=== PATIENT | female | born 1990 | race American Indian/Alaskan Native ===

== ENCOUNTER 2021-06-18 17:41 | Emergency (ER) | payer SELFPAY ==
[2021-06-18 17:56] VITALS: BP 136/77
[2021-06-18] MEDS ORDERED: IBUPROFEN 600 MG TAB PO ONE (20:50)
--- NOTE | 2021-06-18 21:21 | Emergency Department Report ---
ED ENT HPI - General Chief complaint: Earache Stated complaint: EAR NOISE AND THROAT PROBLEM Time Seen by Provider: 06/18/21 20:29 Source: patient Mode of arrival: Ambulatory Limitations: No Limitations - History of Present Illness Initial comments: The patient was evaluated in the emergency department for symptoms described in the history of present illness. He/she was evaluated in the context of the global COVID-19 pandemic, which necessitated consideration that the patient might be at risk for infection with the virus that causes COVID-19. Insti tutional protocols and algorithms that pertain to the evaluation of patients at risk for COVID-19 are in a state of rapid change based on information released by regulatory bodies including the CDC and federal and state organizations. These policies and algorithms were followed during the patient's care in the emergency department. Please note that these policies, procedures and recommendations changed on a rapid basis. 30-year-old 1 day history of right ear pain that feels like is draining inside and right side neck pain with swollen glands. She denies any fever chills no nausea no vomiting. She states she is Covid vaccinated but is not fully vaccinated. She reports seasonal allergies. Currently takes no meds on a daily basis and is allergic to penicillin and sulfa. MD complaint: sore throat (Right ear right side), ear pain Onset/Timin -: days(s) Location: R ear Severity scale (0 -10): 6 Quality: aching Consistency: intermittent Worsens with: swallowing Associated Symptoms: pain with swallowing, sore throat. denies: tinnitus, discharge from ear - Related Data Allergies Allergy/AdvReac Type Severity Reaction Status Date / Time Penicillins Allergy Hives Verified 06/18/21 20:49 Sulfa (Sulfonamide Allergy Hives Verified 06/18/21 20:49 Antibiotics) ED Dental HPI - General Chief complaint: Earache Stated complaint: EAR NOISE AND THROAT PROBLEM Time Seen by Provider: 06/18/21 20:29 Source: patient Mode of arrival: Ambulatory Limitations: No Limitations - Related Data Allergies Allergy/AdvReac Type Severity Reaction Status Date / Time Penicillins Allergy Hives Verified 06/18/21 20:49 Sulfa (Sulfonamide Allergy Hives Verified 06/18/21 20:49 Antibiotics) ED Review of Systems ROS: Stated complaint: EAR NOISE AND THROAT PROBLEM Other details as noted in HPI Comment: All other systems reviewed and negative ED Physical Exam - General Limitations: No Limitations General appearance: alert - Head Head exam: Present: atraumatic, normocephalic - Eye Eye exam: Present: normal appearance - ENT ENT exam: Present: mucous membranes moist, TM's normal bilaterally - Expanded ENT Exam Expanded TM/Canal exam: Mastoid Tenderness: Right TM, Left TM Throat exam: Positive: tonsillar erythema - Neck Neck exam: Present: tenderness, lymphadenopathy - Respiratory Respiratory exam: Present: normal lung sounds bilaterally. Absent: respiratory distress, accessory muscle use - Cardiovascular Cardiovascular Exam: Present: regular rate - Extremities Exam Extremities exam: Present: normal inspection, full ROM - Back Exam Back exam: Present: normal inspection, full ROM - Neurological Exam Neurological exam: Present: alert, oriented X3, normal gait - Psychiatric Psychiatric exam: Present: normal affect, normal mood - Skin Skin exam: Present: warm, dry, intact, normal color. Absent: rash ED Course Vital Signs 06/18/21 06/18/21 17:55 21:05 Temperature 98.5 F Pulse Rate 90 Respiratory 18 16 Rate Blood Pressure 136/77 [Right] O2 Sat by Pulse 100 Oximetry ED Medical Decision Making - Lab Data Lab Results 06/18/21 Range/Units Unknown Group A Strep Rapid Negative (Negative) - Medical Decision Making 30-year-old 1 day history of right ear pain that feels like is draining inside a nd right side neck pain with swollen glands. She denies any fever chills no nausea no vomiting. She states she is Covid vaccinated but is not fully vaccinated. She reports seasonal allergies. Currently takes no meds on a daily basis and is allergic to penicillin and sulfa. Rapid strep has been collected in sent by this provider to the lab. Strep test is negative. Critical care attestation.: If time is entered above; I have spent that time in minutes in the direct care of this critically ill patient, excluding procedure time. ED Disposition Clinical Impression: Acute viral pharyngitis Disposition: HOME / SELF CARE / HOMELESS Is pt being admited?: No Does the pt Need Aspirin: No Condition: Stable Instructions: Sore Throat, [id number] Additional Instructions: Strep test is negative. Need to continue with Tylenol ibuprofen for pain salt water gargles warm tea. Follow-up with your primary care provider if symptoms persist or gets worse. Referrals: PRIMARY CARE, [Primary Care Provider] - 3-5 Days Forms: Work/School Release Form(ED) Time of Disposition: 21:54
== END 2021-06-18 22:20 | disposition home or self-care (01) ==
LOC: ED 17:41
DX: J20.8 Acute bronchitis due to other specified organisms (principal)
CPT/HCPCS: 87116; 87430; 99283

== ENCOUNTER 2021-06-20 06:25 | Emergency (ER) | payer SELFPAY ==
[2021-06-20 06:39] VITALS: BP 110/72
[2021-06-20] MEDS ORDERED: traMADol 50 MG TAB PO ONE (08:20)
--- NOTE | 2021-06-20 08:22 | Emergency Department Report ---
ED ENT HPI - General Chief complaint: Sore Throat Stated complaint: SORE THROAT Source: patient Mode of arrival: Ambulatory Limitations: No Limitations - History of Present Illness Initial comments: The patient was evaluated in the emergency department for symptoms described in the history of present illness. He/she was evaluated in the context of the global COVID-19 pandemic, which necessitated consideration that the patient might be at risk for infection with the virus that causes COVID-19. Institutional protocols and algorithms that pertain to the evaluation of patient s at risk for COVID-19 are in a state of rapid change based on information released by regulatory bodies including the CDC and federal and state organizations. These policies and algorithms were followed during the patient's care in the emergency department. Please note that these policies, procedures and recommendations changed on a rapid basis. 30-year-old -[place] female that I had the pleasure seeing 2 days ago comes in with worsening pain to the right preauricular area. Patient was seen on the 11 of this month. Patient states she tried gargling with salt water taken ibuprofen and Tylenol which she states is not helped. Patient states that the pain is worse and she feels like she has some swelling in that area. Patient does report allergy to penicillin and sulfur. She denies any fever or chills. MD complaint: ear pain Onset/Timin -: days(s) Location: R ear Severity scale (0 -10): 8 Quality: stabbing, aching, sharp Consistency: constant - Related Data Previous Rx's Medication Instructions Recorded Last Taken Type Clindamycin [Clindamycin CAP] 300 mg PO Q8H 10 Days #30 cap 06/20/21 Unknown Rx traMADoL [Ultram 50 MG tab] 50 mg PO Q6HR PRN #12 tablet 06/20/21 Unknown Rx Allergies Allergy/AdvReac Type Severity Reaction Status Date / Time Penicillins Allergy Hives Verified 06/20/21 06:39 Sulfa (Sulfonamide Allergy Hives Verified 06/20/21 06:39 Antibiotics) ED Dental HPI - General Chief complaint: Sore Throat Stated complaint: SORE THROAT Source: patient Mode of arrival: Ambulatory Limitations: No Limitations - Related Data Previous Rx's Medication Instructions Recorded Last Taken Type Clindamycin [Clindamycin CAP] 300 mg PO Q8H 10 Days #30 cap 06/20/21 Unknown Rx traMADoL [Ultram 50 MG tab] 50 mg PO Q6HR PRN #12 tablet 06/20/21 Unknown Rx Allergies Allergy/AdvReac Type Severity Reaction Status Date / Time Penicillins Allergy Hives Verified 06/20/21 06:39 Sulfa (Sulfonamide Allergy Hives Verified 06/20/21 06:39 Antibiotics) ED Review of Systems ROS: Stated complaint: SORE THROAT Other details as noted in HPI Comment: All other systems reviewed and negative ED Past Medical Hx - Past Medical History Previous Medical History?: No - Surgical History Past Surgical History?: No - Medications Home Medications: Home Medications Medication Instructions Recorded Confirmed Last Taken Type Clindamycin [Clindamycin CAP] 300 mg PO Q8H 10 Days #30 cap 06/20/21 Unknown Rx traMADoL [Ultram 50 MG tab] 50 mg PO Q6HR PRN #12 tablet 06/20/21 Unknown Rx ED Physical Exam - General Limitations: No Limitations General appearance: alert, in no apparent distress (Peers uncomfortable) - Head Head exam: Present: atraumatic, normocephalic - Eye Eye exam: Present: normal appearance - ENT ENT exam: Present: mucous membranes moist, other (Right side periauricular tenderness) - Neck Neck exam: Present: normal inspection, full ROM - Respiratory Respiratory exam: Absent: respiratory distress, accessory muscle use - Cardiovascular Cardiovascular Exam: Present: regular rate - Extremities Exam Extremities exam: Present: normal inspection, full ROM - Back Exam Back exam: Present: normal inspection - Neurological Exam Neurological exam: Present: alert, oriented X3, normal gait - Psychiatric Psychiatric exam: Present: normal affect, normal mood - Skin Skin exam: Present: warm, dry, intact, normal color. Absent: rash ED Course Vital Signs 06/20/21 06:33 Temperature 99.4 F Pulse Rate 100 H Respiratory 18 Rate Blood Pressure 110/72 [Right] O2 Sat by Pulse 100 Oximetry ED Medical Decision Making - Medical Decision Making 30-year-old -F[place] female that I had the pleasure seeing 2 days ago comes in with worsening pain to the right preauricular area. Patient was seen on the 11 of this month. Patient states she tried gargling with salt water taken ibuprofen and Tylenol which she states is not helped. Patient states that the pain is worse and she feels like she has some swelling in that area. Patient does report allergy to penicillin and sulfur. She denies any fever or chills. Patient be treated for mastoiditis with clindamycin since she has an allergy to penicillin and sulfur. She is given tramadol for pain management. Encouraged to take ibuprofen. Follow-up with a research nurse practitioner Critical care attestation.: If time is entered above; I have spent that time in minutes in the direct care of this critically ill patient, excluding procedure time. ED Disposition Clinical Impression: Mastoiditis of right side Disposition: HOME / SELF CARE / HOMELESS Is pt being admited?: No Does the pt Need Aspirin: No Condition: Stable Instructions: Mastoiditis, Pediatric Additional Instructions: Complete antibiotics as prescribed. Pain medication as needed. Also recommend ibuprofen to your pain regiment. Increase your water intake. Prescriptions: Clindamycin [Clindamycin CAP] 300 mg PO Q8H 10 Days #30 cap traMADoL [Ultram 50 MG tab] 50 mg PO Q6HR PRN #12 tablet PRN Reason: Pain Referrals: ABEL GILBERT MD [Referring] - 3-5 Days Forms: Work/School Release Form(ED) Time of Disposition: 08:20
[2021-06-20] MEDS ORDERED: IBUPROFEN 800 MG TAB PO ONE (08:26)
== END 2021-06-20 09:06 | disposition home or self-care (01) ==
LOC: ED 06:25
DX: H70.91 Unspecified mastoiditis, right ear (principal)
CPT/HCPCS: 99282